=== PATIENT | female | born 1945 ===

== ENCOUNTER 2022-11-16 05:57 | Inpatient (IN) ==
[2022-11-16] MEDS ORDERED: Buffered Lidocaine 1% SYRIN 1 ml INTRADERM ONE (06:00)
[2022-11-16] MEDS ORDERED: Lactated Ringers 1000 ml BAG 1,000 ML IV SCH (06:00)
[2022-11-16] MEDS ORDERED: ceFAZolin 2 GM in NS PREMIX 2 GM/100 ML BAG IVPB ONE (06:21)
[2022-11-16] MEDS ORDERED: Vancomycin 1,000 MG VIAL ONE (06:36)
[2022-11-16 06:43] LABS: Activated Partial Thrombo Time 31.3 seconds (26.0-38.0); INR 0.97 (0.88-1.18)
[2022-11-16] MEDS ORDERED: Midazolam 2 mg/2 ml VIAL 1 mg/ml 2 ml VIAL (2 mg) ONE ×2 (07:07→07:09)
[2022-11-16] MEDS ORDERED: Dexamethasone IV 4 MG/ML VIAL 1 ml VIAL ONE (07:07)
[2022-11-16] MEDS ORDERED: Propofol 10 MG/ML 20 ML BTL ONE (07:07)
[2022-11-16] MEDS ORDERED: fentaNYL 100 mcg/2 ml 50 MCG/ML VIAL ONE ×2 (07:07→11:08)
[2022-11-16] MEDS ORDERED: Rocuronium 50 mg VIAL 10 mg/ml 5 ml VIAL (50 mg) ONE (07:07)
[2022-11-16] MEDS ORDERED: Ondansetron 4 mg VIAL 2 MG/ML 2 ml VIAL ONE (07:07)
[2022-11-16] MEDS ORDERED: Lidocaine 2% PF 5 ML VIAL ONE (07:07)
[2022-11-16] MEDS ORDERED: ROPIVACAINE 5 MG/ML 30 ML BTL (0.5%) ONE (07:14)
[2022-11-16] MEDS ORDERED: Naloxone 0.4 mg VIAL 0.4 mg/ml 1 ml VIAL IV PRN (08:01)
[2022-11-16] MEDS ORDERED: Ondansetron 4 mg VIAL 2 MG/ML 2 ml VIAL IV PRN ×2 (08:01→10:34)
[2022-11-16] MEDS ORDERED: Phenylephrine IV 10 MG/ML 1 ml VIAL ONE (08:18)
[2022-11-16] MEDS ORDERED: Lactulose 30 ml UDC PO PRN (10:34)
[2022-11-16] MEDS ORDERED: Ondansetron ODT 4 mg TAB 4 MG TAB PO PRN (10:34)
[2022-11-16] MEDS ORDERED: Magnesium Hydroxide LIQ 30 ML UDC PO PRN (10:34)
[2022-11-16] MEDS: fentaNYL 100 mcg/2 ml 50 MCG/ML VIAL IV PRN ×2 (11:09→11:24)
[2022-11-16] MEDS: Lactated Ringers 1000 ml BAG 1,000 ML IV SCH (12:32)
[2022-11-16] MEDS: ceFAZolin 1 GM ADVAN 1 GM in NS 0.9% 50 ML 50 ML IVPB SCH (16:38)
[2022-11-16] MEDS: Magnesium Hydroxide LIQ 30 ML UDC PO SCH (21:11)
[2022-11-16] MEDS: NFT: Mirabegron 50 mg ER TAB (NF) PO SCH (21:11)
[2022-11-17] MEDS: ceFAZolin 1 GM ADVAN 1 GM in NS 0.9% 50 ML 50 ML IVPB SCH ×2 (00:15→08:54)
[2022-11-17] MEDS: Morphine 2 MG/ML SYRINGE IV PRN ×2 (00:17→06:24)
[2022-11-17] MEDS: Lactated Ringers 1000 ml BAG 1,000 ML IV SCH (00:21)
[2022-11-17 06:00] LABS: Hematocrit 31 % (35-47); Hemoglobin 10.2 g/dL (12.0-16.0); Mean Platelet Volume 6.4 fL (7.4-10.4); Platelet Count 176 10^3/uL (150-450)
[2022-11-17 06:49] LABS: Calcium 8.4 mg/dL (8.6-10.3); Creatinine, Serum 1.02 mg/dL (0.51-0.95); Potassium 4.8 mmol/L (3.5-5.0)
[2022-11-17] MEDS: Vitamin THERAPEUTIC TAB PO SCH (08:52)
[2022-11-17] MEDS: Magnesium Hydroxide LIQ 30 ML UDC PO SCH ×2 (09:23→20:26)
[2022-11-17 12:41] LABS: Calcium 8.5 mg/dL (8.6-10.3); Creatinine, Serum 0.96 mg/dL (0.51-0.95); Potassium 4.2 mmol/L (3.5-5.0); eGFR CKD-EPI 61.3 (>60)
[2022-11-17] MEDS ORDERED: Furosemide 20 mg/2 ml IV VIAL IV ONE (13:33)
[2022-11-17] MEDS: Enoxaparin 40 MG/0.4 ML SYR SUBCUT SCH (14:16)
[2022-11-17] MEDS: NFT: Mirabegron 50 mg ER TAB (NF) PO SCH (22:15)
[2022-11-18 06:23] LABS: Hematocrit 28 % (35-47); Hemoglobin 9.2 g/dL (12.0-16.0); Mean Platelet Volume 6.6 fL (7.4-10.4); Platelet Count 170 10^3/uL (150-450)
[2022-11-18] MEDS: Vitamin THERAPEUTIC TAB PO SCH (08:16)
[2022-11-18] MEDS: Magnesium Hydroxide LIQ 30 ML UDC PO SCH ×2 (08:20→20:44)
[2022-11-18] MEDS ORDERED: Furosemide 20 mg/2 ml IV VIAL IV ONE (12:26)
[2022-11-18] MEDS: Enoxaparin 40 MG/0.4 ML SYR SUBCUT SCH (12:46)
[2022-11-18] MEDS: NFT: Mirabegron 50 mg ER TAB (NF) PO SCH (20:51)
[2022-11-19 05:52] LABS: Hematocrit 28 % (35-47); Hemoglobin 9.2 g/dL (12.0-16.0); Mean Platelet Volume 6.7 fL (7.4-10.4); Platelet Count 189 10^3/uL (150-450)
[2022-11-19] MEDS: Vitamin THERAPEUTIC TAB PO SCH (07:46)
[2022-11-19] MEDS: Magnesium Hydroxide LIQ 30 ML UDC PO SCH (07:50)
[2022-11-19 11:38] VITALS: BP 113/72
== END 2022-11-19 12:14 | disposition home or self-care (01) | DRG 483 ==
LOC: SSU → AA 05:57 → INTOOBSV 05:57
PROVIDERS: ADMIT Orthopaedic Surgery; ATTEND Orthopaedic Surgery